=== PATIENT | male | born 1950 | race Caucasian/White ===

== ENCOUNTER 2019-04-09 11:12 | Outpatient (CLI) | payer OTHER ==
[~2019-04-09 11:12] MED LIST: NEURONTIN300 MG; SINGULAIR 5MG5 MG
== END 2019-04-09 11:30 | disposition home or self-care (01) ==
LOC: NUCLEAR 11:12
DX: I73.9 Peripheral vascular disease, unspecified (principal); R20.2 Paresthesia of skin; I87.2 Venous insufficiency (chronic) (peripheral)

== ENCOUNTER 2019-04-09 13:40 | Outpatient (CLI) | payer OTHER | END 2019-04-09 13:45 | disposition home or self-care (01) | LOC: SONOGRAMA 13:40 | DX: S93.402D Sprain of unspecified ligament of left ankle, subsequent encounter (principal) ==

== ENCOUNTER → 2019-04-10 | Outpatient (CLI) | payer OTHER | END | disposition home or self-care (01) | LOC: NUCLEAR 13:00 | DX: I73.9 Peripheral vascular disease, unspecified (principal); R20.2 Paresthesia of skin ==

== ENCOUNTER 2021-01-12 08:15 | Outpatient (CLI) | payer OTHER | END 2021-01-12 08:36 | disposition home or self-care (01) | LOC: SONOGRAMA 08:15 → MAMO-SONO 08:45 | PROVIDERS: ATTEND Internal Medicine Sports Medicine | DX: K76.0 Fatty (change of) liver, not elsewhere classified (principal) ==

== ENCOUNTER → 2025-02-11 09:22 | Outpatient (CLI) | payer OTHER | END | disposition home or self-care (01) | LOC: NUCLEAR 09:00 | PROVIDERS: ATTEND Internal Medicine Sports Medicine | DX: I31.39 Other pericardial effusion (noninflammatory) (principal) ==